=== PATIENT | male | born 1985 | race Caucasian/White ===

== ENCOUNTER 2019-06-14 14:08 | Outpatient (CLI) | payer OTHER ==
[2019-06-14] MEDS ORDERED: BUFFERED LIDOCAINE 10 ML SYRINGE ONE (14:43)
[2019-06-14] MEDS ORDERED: IOTHALAMATE MEGLUMINE 50 ML VIAL ONE (14:43)
[2019-06-14] MEDS ORDERED: GADOBUTROL 10 MMOL/10 ML VIAL ONE (14:43)
[2019-06-14] MEDS ORDERED: GADOBUTROL 10 MMOL/10 ML VIAL IVP ONE (16:17)
[2019-06-14] MEDS ORDERED: BUFFERED LIDOCAINE 10 ML SYRINGE IU ONE (16:17)
[2019-06-14] MEDS ORDERED: IOTHALAMATE MEGLUMINE 50 ML VIAL IVP ONE (16:17)
--- NOTE | 2019-06-14 17:03 | XRAY Report ---
Reason: PAIN IN LT SHOULDER Procedure Date: 06/14/2019 Accession Number: [id number] / [id number] Procedure: FL - Arthrogram Needle Placement CPT Code: Final Report FULL RESULT: EXAM: LEFT SHOULDER ARTHROGRAPHIC INJECTION WITH FLUOROSCOPIC GUIDANCE EXAM DATE: 06/14/2019 03:30 PM. CLINICAL HISTORY: PAIN IN LT SHOULDER. COMPARISON: ARTHROGRAM SHOULDER LT 06/14/2019 3:46 PM. TECHNIQUE: The risks, benefits, and alternatives of the procedure were discussed with the patient. All questions were answered. Written and verbal consent were obtained. The left glenohumeral joint was marked under fluoroscopy and prepped and draped in a sterile manner. Local anesthesia was performed with 1% lidocaine. A 22-gauge needle was then inserted into the glenohumeral joint. 10 mL of a solution containing 25% 1% lidocaine, 25% iodinated contrast, and a 1:200 dilution of gadolinium contrast in sterile saline was then injected. The needle was removed without immediate complication. Other: None. Fluoroscopy Time: 32 seconds. Number of Images: 3. FINDINGS: Bones and joints: No fracture or subluxation. Injection: Fluoroscopic images demonstrate needle placement and contrast in the left glenohumeral joint. No contrast extravasation outside of the glenohumeral joint. IMPRESSION: Successful fluoroscopically guided arthrographic injection of the left shoulder. RADIA
--- NOTE | 2019-06-15 09:07 | MRI Report ---
Reason: PAIN IN LT SHOULDER Procedure Date: 06/14/2019 Accession Number: [id number] / [id number] Procedure: MRI - Arthrogram Shoulder LT CPT Code: Final Report FULL RESULT: EXAM: LEFT SHOULDER MRI ARTHROGRAM WITH CONTRAST EXAM DATE: 06/14/2019 04:21 PM. CLINICAL HISTORY: Left shoulder pain. COMPARISON: 06/14/2019 left shoulder arthrogram. TECHNIQUE: Multiplanar, multisequence T1-weighted and fluid-sensitive sequences of the shoulder after an arthrographic injection of dilute gadolinium, dictated under a separate exam. Other: None. FINDINGS: Acromioclavicular Region: Unfused acromial apophysis. The acromion is type III. There is subchondral edema the distal clavicle and acromion. Mild edema also surrounds the synchondrosis of the acromial apophysis The coracoacromial and coracoclavicular ligaments are intact. Small amount of fluid within the subacromial-subdeltoid bursa. Glenohumeral Region: No subluxation. No loose bodies. The articular cartilage is unremarkable. The glenohumeral ligaments and joint capsule are unremarkable. Bone Marrow: No fractures. No osseous lesions. Labrum: The labrum is unremarkable. Biceps Tendon: The long head of the biceps tendon and biceps maria d are intact. Musculature/Rotator Cuff: Mild supraspinatus tendinosis without tear. The subscapularis, infraspinatus, and teres minor tendons are intact. Contrast within the subscapularis muscle and tendon is almost certainly echogenic. No edema or fatty atrophy. Other: The subcutaneous tissues are unremarkable. IMPRESSION: 1. Type III acromion with adjacent mild subacromial-subdeltoid bursitis and mild supraspinatus tendinosis, suggestive of subacromial impingement. 2. Unfused acromial apophysis, with mild edema surrounding the synchondrosis, as well as subchondral edema at the distal clavicle and acromion surrounding the acromioclavicular joint. 3. Intact labrum. 4. Intact rotator cuff tendons. RADIA
== END 2019-06-14 14:09 | disposition home or self-care (01) ==
LOC: DI 14:08
PROVIDERS: ATTEND General Practice
DX: M75.52 Bursitis of left shoulder (principal); R60.0 Localized edema; M75.92 Shoulder lesion, unspecified, left shoulder
CPT/HCPCS: 23350; 73222; 77002; A9585; Q9961

== ENCOUNTER 2020-04-11 14:40 | Outpatient (CLI) | payer OTHER ==
--- NOTE | 2020-04-11 16:24 | MRI Report ---
PROCEDURE: Lumbar Spine W/O INDICATIONS: LOW BACK PAIN TECHNIQUE: Noncontrast sagittal T1 spin echo and T2 fast echo, sagittal STIR, axial T1 and T2 fast spin echo thr ough the lumbar spine. In cases with scoliosis, additional coronal T2 fast spin echo may be performe d. COMPARISON: None. FINDINGS: Image quality: Excellent. Alignment and Curvature: There is normal bony alignment. Bone Marrow: Marrow is of normal overall signal. No acute vertebral body compression fractures. Spinal Cord: Conus medullaris terminates at the L1 level. Visualized cord demonstrates normal signa l and size. Paraspinous Soft Tissues: No paravertebral masses. This patient has transitional anatomy. For the purposes of this examination, the level with the vesti gial, rudimentary disc is considered to be S1-S2 area T12-L1: Neck loss No significant neural foraminal or central canal narrowing can be seen. L1-L2: Normal in appearance. L2-L3: Normal in appearance. L3-L4: The disc height is well-preserved. There is loss of disc signal seen. Note is made of an jeanine ular fissure posteriorly. Mild to moderate disc bulge is seen, which is eccentric to the right side. Moderate facet hypertrophy is seen. Mild bilateral neural foraminal narrowing is seen. Mild to moderate central canal narrowing is seen. L4-L5: Moderate to severe loss of disc height and disc signal can be seen. Reactive marrow endplat e changes are seen, which are on hypointense on T1-weighted and hyperintense T2-weighted imaging, w ith associated increased STIR signal. These imaging findings are most consistent with endplate edema (Modic type 1 change). At least moderate disc bulge is seen, which is eccentric to the left. Modera te to prominent facet hypertrophy is seen. There is mild left-sided and no significant right-sided ne uroforaminal narrowing seen. Moderate central canal narrowing is seen. L5-S1: Moderate to severe loss of disc height and disc signal can be seen. At least moderate disc b ulge is seen, with a central disc protrusion. Moderate to prominent facet hypertrophy is seen. There is mild to moderate left-sided and at least moderate right-sided neuroforaminal narrowing seen. There is a degree of compression seen upon the exiting right L5 nerve root. Mild central canal narrowing is seen. S1-S2: A transitional, rudimentary disc can be seen. Moderate facet hypertrophy is seen. Moderate bilateral neural foraminal narrowing is seen. Mild central canal narrowing is seen. IMPRESSION: Lumbar spine degenerative changes are seen, which are worst at L4-L5 and L5-S1. Transitional lumbar anatomy, with the most inferior disc level considered to be S1-S2. Reviewed by: Beny Medina MD on 04/11/2020 3:22 PM [place] Approved by: Beny Medina MD on 04/11/2020 3:22 PM [facility] Station ID: [id number]
== END 2020-04-11 14:41 | disposition home or self-care (01) ==
LOC: DI 14:40
PROVIDERS: ATTEND Nurse Practitioner Family
DX: M47.816 Spondylosis without myelopathy or radiculopathy, lumbar region (principal); M51.36 Other intervertebral disc degeneration, lumbar region; M48.061 Spinal stenosis, lumbar region without neurogenic claudication; M51.27 Other intervertebral disc displacement, lumbosacral region; M51.37 Other intervertebral disc degeneration, lumbosacral region; M48.07 Spinal stenosis, lumbosacral region; M47.817 Spondylosis without myelopathy or radiculopathy, lumbosacral region; M47.818 Spondylosis without myelopathy or radiculopathy, sacral and sacrococcygeal region; M48.08 Spinal stenosis, sacral and sacrococcygeal region
CPT/HCPCS: 72148

== ENCOUNTER 2020-07-26 14:47 | Outpatient (CLI) | payer OTHER ==
--- NOTE | 2020-07-26 16:39 | XRAY Report ---
PROCEDURE: Lumbar Spine w/Flex/Ext INDICATIONS: SPINAL STENOSIS OF LUMBAR TECHNIQUE: 6 views of the lumbar spine acquired. COMPARISON: None. FINDINGS: Mild dextrocurvature. No fracture. Scattered multilevel endplate spurring and diffuse facet arthropat hy. Moderate narrowing of the L3-L4 and L4-L5 disc spaces. Mild narrowing of the L5-S1 disc space. No gregory dence of abnormal motion with dynamic flexion and extension lateral views to suggest instability. Soft tissues: Overlying bowel gas pattern is normal. No suspicious soft tissue calcifications. IMPRESSION: Multilevel lumbar spondylosis most pronounced at L3-L4 and L4-L5, and facet arthropathy. No evidence of abnormal motion with dynamic flexion and extension lateral views to suggest instabilit y. Mild dextrocurvature Reviewed by: Mickey Granados MD on 07/26/2020 4:38 PM PST Approved by: Mickey Granados MD on 07/26/2020 4:38 PM PST Station ID: [id number]
== END 2020-07-26 14:48 | disposition home or self-care (01) ==
LOC: DI.N 14:47
PROVIDERS: ATTEND Neurological Surgery
DX: M48.061 Spinal stenosis, lumbar region without neurogenic claudication (principal); M47.816 Spondylosis without myelopathy or radiculopathy, lumbar region

== ENCOUNTER 2020-12-08 07:10 | Outpatient (CLI) | payer OTHER | END 2020-12-08 07:11 | disposition home or self-care (01) | LOC: LAB.N 07:10 | PROVIDERS: ATTEND Physician Assistant | DX: Z20.822 Contact with and (suspected) exposure to COVID-19 (principal) ==

== ENCOUNTER 2021-08-23 11:47 | Outpatient (CLI) | payer OTHER | END 2021-08-23 11:48 | disposition short-term general hospital (02) | LOC: EMS 11:47 | DX: M54.50 Low back pain, unspecified (principal) | CPT/HCPCS: A0425; A0429 ==